=== PATIENT | female | born 1985 | race Caucasian/White ===

== ENCOUNTER 2017-07-31 10:08 | Emergency (ER) | payer SELFPAY ==
[~2017-07-31] VITALS: Ht 160 cm; Wt 80.0 kg
[~2017-07-31 10:08] MED LIST: AMOXICILLIN500 MG PO; NAPROSYN500 MG PO; PENICILLIN VK250 MG PO; RISPERDAL2 MG PO; TRAZODONE50 MG PO; TRILEPTAL600 M1 PO; ULTRAM50 M1 PO
[2017-07-31] MEDS ORDERED: GARCINIA CAMBOG1 TAB PO (10:14)
[2017-07-31] MEDS ORDERED: PENICILLN VK500 MG PO (11:07)
[2017-07-31] MEDS ORDERED: NAPROSYN500 MG PO (11:07)
[2017-07-31 11:10] VITALS: BP 129/77
== END 2017-07-31 11:10 | disposition home or self-care (01) | DRG 159 ==
LOC: ED 10:08
DX: K01.1 Impacted teeth (principal); F20.9 Schizophrenia, unspecified; F41.9 Anxiety disorder, unspecified; F17.210 Nicotine dependence, cigarettes, uncomplicated

== ENCOUNTER 2017-12-19 11:53 | Emergency (ER) | payer SELFPAY ==
[~2017-12-19] VITALS: Ht 160 cm; Wt 79.2 kg
[~2017-12-19 11:53] MED LIST changes: +GARCINIA CAMBOG1 TAB PO; +PENICILLN VK500 MG PO
[2017-12-19 12:38] LABS: URINE BILIRUBIN - DIPSTICK NEGATIVE (NEGATIVE); URINE BLOOD DIPSTICK TRACE-INTACT (NEGATIVE); URINE CLARITY CLEAR; URINE COLOR YELLOW; URINE GLUCOSE - DIPSTICK NEGATIVE (NEGATIVE); URINE KETONE NEGATIVE (NEGATIVE); URINE LEUK ESTERASE NEGATIVE (NEGATIVE); URINE NITRITE - DIPSTICK NEGATIVE (Negative); URINE PROTEIN - DIPSTICK NEGATIVE (NEG-TRACE); URINE UROBILINOGEN - DIPSTICK 0.2 E.U./dL (0.2)
[2017-12-19 12:39] LABS: BARBITURATES NEGATIVE (NEGATIVE); COCAINE NEGATIVE (NEGATIVE); METHADONE NEGATIVE (NEGATIVE); OXCYCODONE NEGATIVE (NEGATIVE); TETRAHYDROCANNABIONOL POSITIVE (NEGATIVE); TRICYLIC ANTIDEPRESSANTS NEGATIVE (NEGATIVE)
[2017-12-19 12:55] LABS: HEMATOCRIT 42.5 % (37.0-47.0); IMMATURE GRANULOCYTES 0.3 % (0.0-1.0); MEAN CELL VOLUME 89.3 fL CALC (80.0-100.0); MEAN CORPUSCULAR HGB 31.5 pG CALC (26.0-32.0); MEAN CORPUSCULAR HGB CONC 35.3 g/L CALC (32.0-36.0); NEUT# 8.14 thou/uL (2.00-7.15); RED BLOOD COUNT 4.76 mill/uL (4.20-5.60); RED CELL DISTRI WIDTH 12.4 % (11.5-15.5)
[2017-12-19 13:18] LABS: ALBUMIN 4.1 g/dL (3.2-5.0); ALKALINE PHOSPHATASE 71 u/l (38-126); ANION GAP 16 (6-22 (CALC)); BILIRUBIN, TOTAL 0.4 mg/dL (0.0-1.4); BUN 17 mg/dL (7-17); BUN/CREATININE RATIO 23 (12-20 (CALC)); CARBON DIOXIDE 25 mmol/l (22-30); CHLORIDE 106 mmol/l (95-108); CREATININE 0.7 mg/dL (0.5-1.0); GFR > 60 ML/MIN (>=60 (CALC)); GFR FOR AFR.AMER. > 60 ML/MIN (>=60 (CALC)); POTASSIUM 4.3 mmol/l (3.5-5.1); SGOT/AST 17 u/l (14-36); SGPT/ALT 23 u/l (9-52); SODIUM 142 mmol/l (137-146)
[2017-12-19] MEDS ORDERED: BENTYL10 MG PO (16:28)
[2017-12-19] MEDS ORDERED: TORADOL PO (16:28)
[2017-12-19 16:32] VITALS: BP 112/72
== END 2017-12-19 16:45 | disposition home or self-care (01) | DRG 392 ==
LOC: ED 11:53
PROVIDERS: Emergency Medicine
DX: R10.33 Periumbilical pain (principal); F20.9 Schizophrenia, unspecified; F31.9 Bipolar disorder, unspecified; F17.210 Nicotine dependence, cigarettes, uncomplicated
CPT/HCPCS: Q9967

== ENCOUNTER 2018-01-25 17:16 | Emergency (ER) | payer MEDICAID ==
[~2018-01-25] VITALS: Ht 160 cm; Wt 77.4 kg
[~2018-01-25 17:16] MED LIST changes: +BENTYL10 MG PO; +TORADOL PO
[2018-01-25 18:25] LABS: HEMATOCRIT 39.5 % (37.0-47.0); HEMOGLOBIN 13.8 g/dl (12.0-16.0); IMMATURE GRANULOCYTES 0.3 % (0.0-1.0); MEAN CELL VOLUME 88.6 fL CALC (80.0-100.0); MEAN CORPUSCULAR HGB 30.9 pG CALC (26.0-32.0); MEAN CORPUSCULAR HGB CONC 34.9 g/L CALC (32.0-36.0); NEUT# 5.33 thou/uL (2.00-7.15); RED BLOOD COUNT 4.46 mill/uL (4.20-5.60)
[2018-01-25 18:32] LABS: URINE BILIRUBIN - DIPSTICK NEGATIVE (NEGATIVE); URINE BLOOD DIPSTICK LARGE (NEGATIVE); URINE COLOR YELLOW; URINE GLUCOSE - DIPSTICK NEGATIVE (NEGATIVE); URINE KETONE NEGATIVE (NEGATIVE); URINE LEUK ESTERASE NEGATIVE (NEGATIVE); URINE NITRITE - DIPSTICK NEGATIVE (Negative); URINE PROTEIN - DIPSTICK TRACE mg/dL (NEG-TRACE); URINE SPECIFIC GRAVITY 1.025; URINE UROBILINOGEN - DIPSTICK 0.2 E.U./dL (0.2)
[2018-01-25 18:33] LABS: URINE CALCIUM OXALATE CRYSTALS FEW lpf; URINE CLARITY HAZY; URINE SQUAMOUS EPITHELIAL CELL MODERATE EPI/hpf (0-FEW); URINE WBC 0-2 WBC/hpf (0-5)
[2018-01-25 18:42] LABS: ALBUMIN 3.7 g/dL (3.2-5.0); ALKALINE PHOSPHATASE 64 u/l (38-126); ANION GAP 14 (6-22 (CALC)); BILIRUBIN, TOTAL 0.3 mg/dL (0.0-1.4); BUN 11 mg/dL (7-17); BUN/CREATININE RATIO 16 (12-20 (CALC)); CARBON DIOXIDE 24 mmol/l (22-30); CHLORIDE 104 mmol/l (95-108); CREATININE 0.7 mg/dL (0.5-1.0); GFR > 60 ML/MIN (>=60 (CALC)); GFR FOR AFR.AMER. > 60 ML/MIN (>=60 (CALC)); POTASSIUM 3.6 mmol/l (3.5-5.1); SGOT/AST 17 u/l (14-36); SGPT/ALT 28 u/l (9-52); SODIUM 139 mmol/l (137-146); TOTAL PROTEIN 6.7 g/dL (6.3-8.2)
[2018-01-25 18:59] LABS: BETA-HCG, QUANT(RESULT NUMBER) 777 mIU/mL
[2018-01-25 19:39] VITALS: BP 113/53
== END 2018-01-25 19:41 | disposition home or self-care (01) | DRG 778 ==
LOC: ED 17:16
PROVIDERS: Emergency Medicine
DX: O20.9 Hemorrhage in early pregnancy, unspecified (principal)

== ENCOUNTER 2018-01-27 08:09 | Emergency (ER) | payer OTHER ==
[~2018-01-27] VITALS: Ht 160 cm; Wt 75.0 kg
[2018-01-27 09:10] LABS: HEMATOCRIT 39.7 % (37.0-47.0); HEMOGLOBIN 13.9 g/dl (12.0-16.0); IMMATURE GRANULOCYTES 0.3 % (0.0-1.0); MEAN CELL VOLUME 88.2 fL CALC (80.0-100.0); MEAN CORPUSCULAR HGB 30.9 pG CALC (26.0-32.0); NEUT# 5.63 thou/uL (2.00-7.15); RED BLOOD COUNT 4.5 mill/uL (4.20-5.60); RED CELL DISTRI WIDTH 11.9 % (11.5-15.5)
[2018-01-27] MEDS ORDERED: PRE-NATAL PO (09:44)
[2018-01-27 10:21] VITALS: BP 120/72
== END 2018-01-27 10:21 | disposition home or self-care (01) | DRG 778 ==
LOC: ED 08:09
PROVIDERS: Family Medicine
DX: O20.0 Threatened abortion (principal); O99.341 Other mental disorders complicating pregnancy, first trimester; F20.9 Schizophrenia, unspecified; F31.9 Bipolar disorder, unspecified; O99.331 Smoking (tobacco) complicating pregnancy, first trimester; F17.210 Nicotine dependence, cigarettes, uncomplicated; Z3A.01 Less than 8 weeks gestation of pregnancy

== ENCOUNTER 2018-02-02 13:20 | Emergency (ER) | payer OTHER ==
[~2018-02-02] VITALS: Ht 160 cm; Wt 76.6 kg
[~2018-02-02 13:20] MED LIST changes: +PRE-NATAL PO
[2018-02-02 16:06] VITALS: BP 123/71
== END 2018-02-02 16:06 | disposition home or self-care (01) | DRG 778 ==
LOC: ED 13:20
DX: O20.0 Threatened abortion (principal); F17.210 Nicotine dependence, cigarettes, uncomplicated; M54.5 Low back pain
CPT/HCPCS: J2788

== ENCOUNTER 2021-04-30 09:35 | Emergency (ER) | payer OTHER ==
[~2021-04-30] VITALS: Ht 160 cm; Wt 115.0 kg
[2021-04-30] MEDS ORDERED: TYLENOL # 31 TA1 PO (10:22)
[2021-04-30] MEDS ORDERED: CLEOCIN300 MG PO (10:22)
[2021-04-30 11:02] VITALS: BP 134/66
== END 2021-04-30 11:12 | disposition home or self-care (01) ==
LOC: ED 09:35
DX: K04.7 Periapical abscess without sinus (principal); E11.9 Type 2 diabetes mellitus without complications; F31.9 Bipolar disorder, unspecified; F17.210 Nicotine dependence, cigarettes, uncomplicated

== ENCOUNTER 2022-04-16 10:08 | Emergency (ER) | payer OTHER ==
[~2022-04-16] VITALS: Ht 160 cm; Wt 109.1 kg
[2022-04-16] VITALS (7 sets, daily range): BP systolic 106–134; BP diastolic 54–65
[~2022-04-16 10:08] MED LIST changes: +CLEOCIN300 MG PO; +TYLENOL # 31 TA1 PO
[2022-04-16] MEDS ORDERED: HYDROCO/APAP1 TA9 PO (10:24)
[2022-04-16] MEDS ORDERED: RISPERIDONE2 M1 PO (10:24)
[2022-04-16] MEDS ORDERED: HYDROXYZINE HCL50 MG PO (10:25)
[2022-04-16] MEDS ORDERED: SERTRALINE HCL100 MG PO (10:26)
[2022-04-16 11:52] LABS: MYOGLOBIN 16 ng/mL (0 - 62)
[2022-04-16 12:01] LABS: ALBUMIN 3.2 g/dL (3.2-5.0); ALKALINE PHOSPHATASE 80 u/l (38-126); ANION GAP 8 (6-22 (CALC)); BILIRUBIN, TOTAL 0.4 mg/dL (0.0-1.4); BUN 7 mg/dL (7-17); BUN/CREATININE RATIO 12 (12-20 (CALC)); CARBON DIOXIDE 24 mmol/l (22-30); CHLORIDE 105 mmol/l (95-108); CREATININE 0.6 mg/dL (0.5-1.0); GFR FOR AFR.AMER. > 60 ML/MIN (>=60 (CALC)); GFR OTHER RACES > 60 ML/MIN (>=60 (CALC)); POTASSIUM 3.9 mmol/l (3.5-5.1); SGOT/AST 18 u/l (14-36); SODIUM 134 mmol/l (137-146); TOTAL PROTEIN 6.5 g/dL (6.3-8.2)
[2022-04-16 12:20] LABS: HEMATOCRIT 38.3 % (37.0-47.0); HEMOGLOBIN 13.3 g/dl (12.0-16.0); IMMATURE GRANULOCYTES 0.2 % (0.0-5.0); MEAN CELL VOLUME 84.7 fL CALC (80.0-100.0); MEAN CORPUSCULAR HGB 29.4 pG CALC (26.0-32.0); MEAN CORPUSCULAR HGB CONC 34.7 g/dL CAL (32.0-36.0); NEUT# 13.03 thou/uL (2.00-7.15); RED BLOOD COUNT 4.52 mill/uL (4.20-5.60); RED CELL DISTRI WIDTH 13.4 % (11.5-15.5)
[2022-04-16] MEDS ORDERED: ZITHROMAX250 MG PO (13:00)
[2022-04-16] MEDS ORDERED: MEDDOSEPAK PO (13:00)
[2022-04-16] MEDS ORDERED: VENTOLIN HFA IN (13:03)
== END 2022-04-16 13:27 | disposition left against medical advice (07) ==
LOC: ED 10:08
PROVIDERS: Emergency Medicine
DX: M47.814 Spondylosis without myelopathy or radiculopathy, thoracic region (principal); J44.1 Chronic obstructive pulmonary disease with (acute) exacerbation; J18.9 Pneumonia, unspecified organism; J44.0 Chronic obstructive pulmonary disease with (acute) lower respiratory infection; E11.9 Type 2 diabetes mellitus without complications; F31.9 Bipolar disorder, unspecified; F17.210 Nicotine dependence, cigarettes, uncomplicated; Z91.19 Patient's noncompliance with other medical treatment and regimen; Z20.822 Contact with and (suspected) exposure to COVID-19

== ENCOUNTER 2022-06-15 11:09 | Emergency (ER) | payer OTHER ==
[~2022-06-15] VITALS: Ht 160 cm; Wt 99.7 kg
[~2022-06-15 11:09] MED LIST changes: +HYDROCO/APAP1 TA9 PO; +HYDROXYZINE HCL50 MG PO; +MEDDOSEPAK PO; +RISPERIDONE2 M1 PO; +SERTRALINE HCL100 MG PO; +VENTOLIN HFA IN; +ZITHROMAX250 MG PO
[2022-06-15 11:18] VITALS: BP 114/72
[2022-06-15] MEDS ORDERED: CLINDAMYCIN300 M1 PO (11:19)
== END 2022-06-15 11:34 | disposition home or self-care (01) ==
LOC: ED 11:09
DX: K08.89 Other specified disorders of teeth and supporting structures (principal)

== ENCOUNTER 2022-08-29 13:26 | Emergency (ER) | payer OTHER ==
[~2022-08-29] VITALS: Ht 160 cm; Wt 90.7 kg
[~2022-08-29 13:26] MED LIST changes: +CLINDAMYCIN300 M1 PO
[2022-08-29] MEDS ORDERED: PAXLOVID PO (16:00)
[2022-08-29 16:29] VITALS: BP 108/56
== END 2022-08-29 16:29 | disposition home or self-care (01) ==
LOC: ED 13:26
DX: U07.1 COVID-19 (principal); R50.9 Fever, unspecified; R05.9 Cough, unspecified; R53.83 Other fatigue; E11.9 Type 2 diabetes mellitus without complications; F31.9 Bipolar disorder, unspecified; F17.200 Nicotine dependence, unspecified, uncomplicated